=== PATIENT | female | born 2000 ===

== ENCOUNTER 2024-05-05 21:03 | Outpatient (REF) | payer OTHER, SELFPAY ==
[2024-05-06 10:42] LABS: Lyme Ab w Rflx to Lyme Confirm Positive (Negative)
[2024-05-06 16:42] LABS: Lyme IgG Ab Positive (Negative); Lyme IgM Ab Positive (Negative)
[2024-05-08 15:32] LABS: Anaplasma phagocytophilum Negative (Negative); B. miyamotoi PCR Negative (Negative); Babesia divergens/MO-1 Negative (Negative); Babesia duncani Negative (Negative); Babesia microti Negative (Negative); Ehrlichia chaffeensis Negative (Negative); Ehrlichia ewingii/canis Negative (Negative); Ehrlichia muris eauclairensis Negative (Negative)
== END 2024-05-05 21:04 | disposition home or self-care (01) ==
LOC: LBN 21:03
PROVIDERS: Visit Provider Physician Assistant Medical
DX: R21 Rash and other nonspecific skin eruption (principal)
CPT/HCPCS: 86617; 87798; 86618